=== PATIENT | female | born 1955 | race Caucasian/White ===

== ENCOUNTER 2016-06-09 11:33 | Day surgery (SDC) | payer OTHER ==
--- NOTE | 2016-06-08 10:04 | MH ---
cc: MOSHE MALDONADO MD DATE OF ADMISSION 06/09/2016 REASON FOR ADMISSION Cardiac catheterization 1955 HISTORY OF PRESENT ILLNESS The patient is a 61 year-old white female with a history of severe aortic stenosis, bicuspid aortic valve, coronary artery disease, diabetes who is admitted for cardiac catheterization. The patient has been experiencing somewhat progressive dyspnea which occurs with minimal exertion. In addition, she experiences intermittent very mild dependent pedal edema. The patient denies chest pain, syncope, palpitations, paroxysmal nocturnal dyspnea. She did have an echocardiogram 01/22/2016 showing severe aortic stenosis with a mean transvalvular aortic gradient of 46 mmHg. PAST MEDICAL HISTORY 1. Severe aortic stenosis with a known bicuspid aortic valve. 2. Coronary artery disease status post anterior myocardial infarction, ventricular fibrillation arrest and stent of the LAD February 1998. She had recurrent ventricular fibrillation and a non-ST elevation myocardial infarction due to severe restenosis of the LAD stent 06/12/1998. She subsequently underwent bypass surgery with a left internal mammary artery to the LAD. Her last heart catheterization was 2007 showing minimal left main and minimal left circumflex disease, severely diseased proximal LAD stent, mild proximal right coronary artery stenosis (small and nondominant), patent left internal mammary artery to the LAD 3. Diabetes. 4. Hyperlipidemia. 5. Hypertension 6. Known solitary right kidney. MEDICATIONS Her cardiac medications, 1. Aspirin 325 mg daily, 2. Bumex 2 mg daily, 3. Carvedilol 3.125 mg b.i.d., 4. Enalapril 5 mg daily, 5. Lipitor 40 mg q.h.s. ALLERGIES AMOXICILLIN FAMILY HISTORY Noncontributory. SOCIAL HISTORY The patient has never smoked cigarettes. She drinks occasional alcohol. REVIEW OF SYSTEMS As in the history of present illness otherwise negative or noncontributory. PHYSICAL EXAMINATION VITAL SIGNS: Blood pressure 120/66 with a pulse of 80, respirations 18. GENERAL: She is a well-developed, well-nourished white female in no acute distress HEENT: Jugular venous pressure is normal. Carotid pulses are 2+ bilaterally and without bruits. CHEST: Examination of the chest reveals clear lung nava. CARDIAC: She has a regular rhythm and rate with a grade 2/6 systolic ejection murmur heard best at the base of the heart. The S2 heart sound is diminished. No gallop is audible. ABDOMEN: She has a soft, nontender abdomen. Bowel sounds are present. There is no definite hepatosplenomegaly. EXTREMITIES: No clubbing, cyanosis or edema. IMPRESSION Severe aortic stenosis in this 61-year-old white female with a history of coronary artery disease, bicuspid aortic valve, diabetes, hypertension. The patient also has been experiencing worsening dyspnea in a gradual fashion over the last two years. Her shortness of breath is now occurring with minimal exertion. I have overall recommended she undergo cardiac catheterization prior to consideration of aortic valve replacement. She is agreeable to proceed. PLAN Right and left heart catheterization on 06/09/2016. MD CHERYL Hoffman/ /4:24 PM /9:03 AM MTDD
[~2016-06-09] VITALS: Ht 149.9 cm; Wt 102.9 kg
[~2016-06-09 11:33] MED LIST: ACAR25TA PO; AMAR4TAB PO; ASPI325T PO; BUME1TAB PO; ERGO50000 PO; FLUO20SO3 PO; LANTUSP SQ; LIPI40TA PO; METF-324 PO; METO50TA PO; NABU500T PO; ROSI1TAB25 PO; VASO10TA8 PO
[2016-06-09] MEDS ORDERED: NS 1000P @30 MLS/HR (KVO) IV SCH (12:30)
[2016-06-09 12:50] VITALS: BP 144/79; PULSE 80; RESP 18; TEMP 98.1; O2SAT 97
[2016-06-09] MEDS ORDERED: LANTUS2P SQ (13:16)
[2016-06-09] MEDS ORDERED: ENAL5TAB PO (13:16)
[2016-06-09] MEDS ORDERED: ACAR50TA PO (13:16)
[2016-06-09] MEDS ORDERED: FERR325T2 PO (13:16)
[2016-06-09] MEDS ORDERED: CARV3.12 PO (13:16)
[2016-06-09] MEDS ORDERED: DOCU100C PO (13:16)
[2016-06-09] MEDS ORDERED: BUME2TAB PO (13:16)
[2016-06-09] MEDS ORDERED: MULT-135 PO (13:16)
[2016-06-09] MEDS ORDERED: ASPI325T PO (13:16)
[2016-06-09] MEDS ORDERED: LIPI40TA PO (13:16)
[2016-06-09] MEDS ORDERED: VITA10007 PO (13:16)
[2016-06-09] MEDS ORDERED: GLIM4TAB PO (13:16)
[2016-06-09] MEDS ORDERED: VITA100064 PO (13:17)
[2016-06-09 13:31] LABS: AUTOMATED NEUTROPHIL # 5.4 TH/MM3 (1.8-7.7); BASOPHIL # 0.1 TH/MM3 (0-0.2); BASOPHIL % 0.7 % (0.0-2.0); EOSINOPHIL # 0.2 TH/MM3 (0-0.4); EOSINOPHIL % 2.2 % (0.0-4.0); HEMO FLAGS DIFF FINAL; LYMPH % 27.6 % (9.0-44.0); LYMPHOCYTE # 2.4 TH/MM3 (1.0-4.8); MEAN CORPUSCULAR HEMOGLOBIN 27.8 PG (27.0-34.0); MONO % 8.3 % (0.0-8.0); NEUT % 61.2 % (16.0-70.0); PLATELET COUNT 207 TH/MM3 (150-450); RED BLOOD COUNT 4.27 MIL/MM3 (4.00-5.30); RED CELL DISTRIBUTION WIDTH 14.4 % (11.6-17.2); WHITE BLOOD COUNT 8.9 TH/MM3 (4.0-11.0)
[2016-06-09] MEDS ORDERED: IOHEXOL 350 MG/ML 50 ML BTL (for Cath Lab) OTHER ONE (13:34)
[2016-06-09] MEDS ORDERED: MIDAZOLAM HCL 2 MG/2 ML VIAL ONE ×2 (13:41→14:24)
[2016-06-09] MEDS ORDERED: HEPARIN-NS/PF INJ 500 ML ONE (13:41)
[2016-06-09 13:44] LABS: APTT (PATIENT) 24.7 SEC (24.3-30.1)
[2016-06-09 13:54] LABS: BICARBONATE 27.1 MEQ/L (21.0-32.0)
[2016-06-09] MEDS ORDERED: LIDOCAINE HCL 1% PF 30 ML VIAL ONE ×2 (14:08→14:15)
[2016-06-09] MEDS ORDERED: SODIUM CHLOR 0.9% 1000 ML INJ 1,000 ML IV ONE (14:56)
[2016-06-09] MEDS ORDERED: ONDANSETRON HCL 4 MG/2 ML VIAL IV PRN (15:00)
[2016-06-09] MEDS ORDERED: ATROPINE SULFATE 1 MG/ML VIAL IVP PRN (15:00)
[2016-06-09] MEDS ORDERED: SODIUM CHLOR 0.9% 250 ML INJ 250 ML IV PRN (15:00)
--- NOTE | 2016-06-09 18:38 | MA ---
cc: FAROOQ MALDONADO DATE: 06/09/2016 PROCEDURE Left and right heart catheterization, selective coronary and graft angiography. PROCEDURE NOTES The patient was brought to the Cardiac Catheterization Laboratory in a fasting state after having signed informed consent. The right and left groins were prepped and draped as per policy and anesthetized with 1% lidocaine. We were unable to obtain right femoral arterial access. The case was done through the left femoral artery and vein. Central venous access was obtained via the left femoral vein and a 7-Slovak sheath placed. Arterial access was obtained via the left femoral artery and a 6-Slovak sheath placed. Coronary arteriography was performed using 6-Slovak Mehdi left 4.0 and right Progressive catheters. The mammary graft was engaged with a Progressive right catheter. Left ventriculography could not be done as the aortic valve could not be crossed. Right heart catheterization was done using a Mack-Heather catheter. There were no apparent immediate complications. Her arteriotomy site was closed with VASCADE. Manual pressure was applied to her venotomy site. HEMODYNAMIC RESULTS Right atrium mean equals 6. Right ventricle 31 with an end-diastolic pressure of less than 10. Pulmonary artery 29/13 with a mean of 19. Pulmonary capillary wedge pressure mean equals 11. Aorta 114/56 with a mean of 77. CORONARY ARTERIOGRAPHY The left main is normal. The left anterior descending demonstrates a stent in its proximal portion. There is severe diffuse restenosis of the stent. Competitive flow is evident in the mid to distal LAD. The LAD gives rise to a small diagonal which appears to be free of disease. The left circumflex is a large dominant vessel with up to 10% stenosis proximally right after the takeoff of the first obtuse marginal which is a small to medium-sized vessel with diffuse proximal to mid disease resulting in up to 10% stenosis. The right coronary artery is a relatively small nondominant vessel with minimal to mild diffuse luminal irregularities. LEFT VENTRICULOGRAPHY Could not be performed. We did briefly cross the aortic valve with an Amplatz left 1.0 catheter in combination with a straight tipped wire, but were unable to advance the Amplatz catheter into the left ventricle. We could not cross the aortic valve using a multipurpose catheter. GRAFT ANGIOGRAPHY The left internal mammary artery to the LAD is widely patent. The distal LAD has minimal luminal irregularities. CONCLUSIONS 1. Chronically severely diseased proximal LAD with a widely patent left internal mammary artery to the LAD. 2. Normal pulmonary pressures and pulmonary capillary wedge pressure, normal central venous pressure. 3. Severe aortic stenosis. We are unable to cross the valve. On echo recently her mean transvalvular aortic gradient was 46 mmHg consistent with severe aortic stenosis. The patient will be considered for transcatheter aortic valve replacement. MD CHERYL Hoffman/EBONIE /2:54 PM /6:24 PM MTDDee
--- NOTE | 2016-06-11 11:21 | EKG ---
Date Performed: 06/09/2016 Time Performed: 13:27:48 PTAGE: 61 years EKG: Sinus rhythm with PVC(s) Left axis deviation Possible anteroseptal infarct - age undetermined Lateral T wave caal ges are nonspecific Abnormal ECG PREVIOUS TRACING : 11/20/2007 13.03 DOCTOR: Scott Ford Interpretating Date/Time 06/11/2016 11:19:23
== END 2016-06-09 18:06 | disposition home or self-care (01) ==
LOC: HDIC 11:33 → HDOC 11:33
PROVIDERS: ATTEND Internal Medicine Cardiovascular Disease
DX: I35.0 Nonrheumatic aortic (valve) stenosis (principal); I25.10 Atherosclerotic heart disease of native coronary artery without angina pectoris; I10 Essential (primary) hypertension; E78.5 Hyperlipidemia, unspecified; E11.9 Type 2 diabetes mellitus without complications; I25.2 Old myocardial infarction; Z95.2 Presence of prosthetic heart valve; Z79.82 Long term (current) use of aspirin; Z88.0 Allergy status to penicillin
CPT/HCPCS: 80048; 82810; 85025; 85610; 85730; 93005; 93457; C1760; C1769; C1893; G0269; J1644; J2250; J3010; Q9967